=== PATIENT | female | born 1990 | race Caucasian/White ===

== ENCOUNTER → 2017-11-10 | Outpatient (CLI) | payer OTHER | LOC: M LRY 16:25 | DX: M79.671 Pain in right foot (principal) | CPT/HCPCS: 73630 ==

== ENCOUNTER → 2018-10-25 | Outpatient (REF) | payer OTHER | LOC: M LAB REF 16:08 | PROVIDERS: ATTEND Nurse Practitioner Women's Health | DX: Z3A.16 16 weeks gestation of pregnancy (principal) ==

== ENCOUNTER 2019-03-21 09:03 | Inpatient (IN) | payer OTHER ==
[~2019-03-21] VITALS: Ht 160 cm; Wt 70.7 kg
[2019-03-21] VITALS (17 sets, daily range): BP systolic 122–143; BP diastolic 56–87
[2019-03-21] MEDS ORDERED: MULTTAB20 PO (09:29)
[2019-03-21] MEDS ORDERED: LR 1,000 ML IV SCH (10:09)
[2019-03-21] MEDS ORDERED: OXYTOCIN DRIP 30 UNITS in APPROPRIATE DILUENT 1 EA IV SCH (10:15)
--- NOTE | 2019-03-21 10:32 | HPEPDOC ---
Obstetrical History & Physical General Date of Admission Mar 21, 2019 at 10:04 History of Present Illness 29 yo at 37 2/7 wks by 1st trimester US presents with LOF since midnight . She experienced a large gush and has continued leaking. She had an hour of painful contractions and then was able to rest. Denies vaginal bleeding, +FM. 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 ABDOMEN: Gravid and non-tender to touch. SSE: + pooling, nitrazine, ferning EXTREMITIES: No edema. No clonus. . Pertinent Laboratoy Data Blood Type: O+ RBC Antibody Screen: Negative HIV: Negative Hepatitis B: Negative Hepatitis C: Negative Rapid Plasma Reagin: Nonreactive Rubella: Immune Chlamydia/Gonorrhea: Negative Group B Streptococcus: Positive Vaginal Examination Dilation: 4 cm Effacement: 50% Station: -2 Cervical Consistency: Medium Cervical Position: Posterior Presentation: Cephalic presentation Assessment Heart Rate (FHR): 115 Variability: Moderate Accelerations: Positive Decelerations: Variable Tocometer Contractions: Yes Frequency: irregular Assessment/Plan Assessment 29 yo at 37 2/7 wks with ROM Plan Admit and orient. Security Administrator and consent. ROM: will start pitocin for augmentation as pt has been ruptured since midnight without progression into labor Diet: clears. Group B Streptococcus (GBS) +, will start Ancef. Labs and intravenous (IV) per unit protocol. CARMINE JAMA PGY-3 Mar 21, 2019 10:32
[2019-03-21 10:42] LABS: BASO % 0.4 % (0.0-1.0); EOS # 0.1 10^3/uL (0.0-0.50); HEMATOCRIT 37.8 % (36.0-47.0); HEMOGLOBIN 12.8 g/dl (12.0-15.5); LYMPH # 1.9 10^3/uL (1.5-6.5); MEAN CORPUSCULAR HEMOGLOBIN 30.7 pg (27.0-33.0); MEAN CORPUSCULAR HGB CONC 33.9 g/dl (32.0-36.5); MEAN CORPUSCULAR VOLUME 90.6 fl (80.0-96.0); MONO # 0.8 10^3/uL (0.0-0.8); MONO % 7.8 % (0.0-5.0); NEUTROPHILS # 6.9 10^3/uL (1.8-7.7); NEUTROPHILS % 70.6 % (36.0-66.0); PLATELET COUNT, AUTOMATED 239 10^3/uL (150-450); RED BLOOD COUNT 4.17 10^6/uL (4.00-5.40); WHITE BLOOD COUNT 9.8 10^3/uL (4.0-10.0)
--- NOTE | 2019-03-21 14:32 | IPNPDOC ---
Obstetrical Progress Note Date of Service Mar 21, 2019 Subjective pt breathing though ctx, feeling more uncomfortable Objective Vital Signs Date Time Temp Pulse Resp B/P (MAP) Pulse Ox O2 Delivery O2 Flow Rate FiO2 03/21/19 13:02 98.4 65 18 143/87 (105) 03/21/19 09:24 98 Assessment Heart Rate (FHR): 110 Variability: Moderate Accelerations: None Decelerations: Early Tocometer Contractions: Yes Frequency: regular Sterile Vaginal Examination Dilation: 6 cm Effacement (%): 80% Station: -1 Cervical Consistency: Soft Assessment and Plan Additional Comments 29 yo at 37 2/7 wks, undergoing IOL for SROM -IOL: progressing, continue pitocin per protocol -FWB: overall reassuring with mod variability and early/variable decels. Continue repositioning prn -GBS+, on ancef d/t PCN allergy CARMINE JAMA PGY-3 Mar 21, 2019 14:32
--- NOTE | 2019-03-21 15:36 | DNPDOC ---
[facility] Delivery Note Delivery Note DATE OF DELIVERY: 03/21/18 PREDELIVERY DIAGNOSIS: 37 2/7 weeks' gestation and labor, undergoing IOL after SROM at midnight on 03/21 POST DELIVERY DIAGNOSIS: Delivered. PROCEDURE: Spontaneous vaginal delivery. POLICE AND FIRE DISPATCHER: KEVIN Mclean; Carmine Jama, PGY3 ANESTHESIA: none. ESTIMATED BLOOD LOSS: 350cc. FINDINGS: Liveborn female infant at 1515, weight pending. Apgars 8/9. DELIVERY SUMMARY: Patient is a 29 G4 now P3104 who was admitted this morning after SROM at midnight. She was admitted and started on pitocin and ancef for GBS+. She progressed through the day and became fully dilated at 1510. She pushed once to deliver a liveborn female over an intact perienum. Tight nuchal x1 that was delivered through. Baby placed immediately to mom's chest. Placenta delivered spontaneously at 1523. EBL was 350cc. Mom and baby bonding in delivery room. CARMINE JAMA PGY-3 Mar 21, 2019 15:36
[2019-03-21] MEDS ORDERED: DOCUSATE SODIUM 100 MG CAP PO PRN (15:45)
[2019-03-21] MEDS ORDERED: ACETAMINOPHEN 500 MG TAB PO PRN (15:45)
[2019-03-21] MEDS ORDERED: ACETAMINOPHEN TAB 650MG DOSE (2X325MG) PO PRN (15:45)
[2019-03-21] MEDS ORDERED: METHYLERGONOVINE MALEATE 0.2 MG TAB PO PRN (15:45)
[2019-03-21] MEDS ORDERED: ONDANSETRON 4MG/2ML VIAL (J2405) IV PRN (15:45)
[2019-03-21] MEDS ORDERED: IBUPROFEN 600 MG TAB PO PRN (15:45)
[2019-03-21] MEDS ORDERED: PROMETHAZINE 25 MG TAB PO PRN (15:45)
[2019-03-21] MEDS ORDERED: DIBUCAINE 1% OINTMENT 30GM TOP PRN (15:45)
[2019-03-21] MEDS: IBUPROFEN 800 MG TAB PO PRN (17:03)
[2019-03-21] MEDS ORDERED: ceFAZolin SOD 1 GM in D5W MINI-BAG PLUS 50 ML IV SCH (19:00)
[2019-03-22 06:00] VITALS: BP 111/59
[2019-03-22] MEDS ORDERED: LEVOTHYROXINE 150MCG TABLET (0.15MG) PO SCH (06:00)
[2019-03-22] MEDS ORDERED: IBUP80TA PO (07:15)
[2019-03-22] MEDS ORDERED: ACET1TAB55 PO (07:15)
[2019-03-22] MEDS: IBUPROFEN 800 MG TAB PO PRN (07:44)
[2019-03-22] MEDS ORDERED: PRENATAL VITAMINS CHEWABLE TABLET PO SCH (09:00)
[2019-03-23] MEDS ORDERED: ADDERALL 5 MG TAB PO SCH (09:00)
== END 2019-03-22 16:30 | disposition home or self-care (01) | DRG 807 ==
LOC: M LDO 09:03 → M LDI 10:04 → M OBS 17:28
PROVIDERS: ADMIT Advanced Practice Midwife; ATTEND Advanced Practice Midwife
PROC: 10E0XZZ Delivery of Products of Conception, External Approach (ICD-10-PCS; principal; 2019-03-21)
DX: O69.89X0 Labor and delivery complicated by other cord complications, not applicable or unspecified (principal); Z37.0 Single live birth; Z3A.37 37 weeks gestation of pregnancy; O99.824 Streptococcus B carrier state complicating childbirth

== ENCOUNTER → 2019-08-18 | Outpatient (REF) | payer OTHER ==
[~2019-08-18] MED LIST: ACET1TAB55 PO; IBUP80TA PO; MULTTAB20 PO
[2019-08-18 17:20] LABS: BASO # 0.1 10^3/uL (0.0-0.2); BASO % 0.7 % (0.0-1.0); EOS # 0.1 10^3/uL (0.0-0.5); EOS % 0.9 % (0.0-3.0); HEMATOCRIT 44.2 % (36.0-47.0); HEMOGLOBIN 14.1 g/dl (12.0-15.5); LYMPH # 2.1 10^3/uL (1.5-5.0); LYMPH % 25.5 % (24.0-44.0); MEAN CORPUSCULAR HEMOGLOBIN 29.4 pg (27.0-33.0); MEAN CORPUSCULAR HGB CONC 31.9 g/dl (32.0-36.5); MEAN CORPUSCULAR VOLUME 92.3 fl (80.0-96.0); MONO # 0.7 10^3/uL (0.0-0.8); MONO % 8.2 % (0.0-5.0); NEUTROPHILS # 5.2 10^3/uL (1.5-8.5); NEUTROPHILS % 64.3 % (36.0-66.0); PLATELET COUNT, AUTOMATED 289 10^3/uL (150-450); RED BLOOD COUNT 4.79 10^6/uL (4.00-5.40); WHITE BLOOD COUNT 8.1 10^3/uL (4.0-10.0)
[2019-08-18 17:28] LABS: ALBUMIN 4.4 GM/DL (3.2-5.2); ALT/SGPT 21 U/L (12-78); BILIRUBIN,TOTAL 0.5 MG/DL (0.2-1.0); BLOOD UREA NITROGEN 13 MG/DL (7-18); CALCIUM LEVEL 9.7 MG/DL (8.5-10.1); CARBON DIOXIDE LEVEL 29 MEQ/L (21-32); CHLORIDE LEVEL 106 MEQ/L (98-107); CREATININE FOR GFR 0.82 MG/DL (0.55-1.30); FREE T4 0.95 NG/DL (0.76-1.46); GLOMERULAR FILTRATION RATE > 60.0 (>60); GLUCOSE, FASTING 79 MG/DL (70-100); POTASSIUM SERUM 4.1 MEQ/L (3.5-5.1); SODIUM LEVEL 140 MEQ/L (136-145); TOTAL PROTEIN 7.5 GM/DL (6.4-8.2)
[2019-08-18 18:15] LABS: HEMOGLOBIN A1c 5.4 %
== END ==
LOC: M SFHCCLAY 10:41
PROVIDERS: ATTEND Nurse Practitioner Family
DX: R42 Dizziness and giddiness (principal)
CPT/HCPCS: 80053; 83036; 84439; 84443; 85025; G0463

== ENCOUNTER 2020-02-08 15:47 | Emergency (ER) | payer OTHER ==
[~2020-02-08] VITALS: Ht 160 cm; Wt 61.4 kg
[2020-02-08 15:47] VITALS: BP 141/78
[2020-02-08] MEDS ORDERED: LIDOCAINE 5% (LIDODERM) PATCH TD ONE (16:45)
[2020-02-08] MEDS ORDERED: LIDO5DIS41 TOP (17:43)
--- NOTE | 2020-02-08 17:54 | REP ---
LUMBOSACRAL SPINE: REASON: Pain after trauma. FINDINGS: Five views of the lumbosacral spine show no acute fracture, dislocation or subluxation. The intervertebral disc spaces are symmetric and well maintained. There is no spondylolysis or spondylolisthesis. The pedicles are intact bilaterally and there is no destructive osseous lesion. IMPRESSION: Unremarkable lumbosacral spine series. Electronically Signed by Jose Ernandez DO 02/08/2020 06:17 P
--- NOTE | 2020-02-08 17:54 | REP ---
REASON: Pain after trauma. FINDINGS: No acute fracture or destructive osseous lesion. Electronically Signed by Jose Ernandez DO 02/08/2020 06:17 P
[2020-02-08] MEDS ORDERED: **NOTE PATIENT COMMENT** MISC XX SCH (21:00)
== END 2020-02-08 17:54 | disposition home or self-care (01) ==
LOC: M ED 15:47
DX: S30.0XXA Contusion of lower back and pelvis, initial encounter (principal); X50.3XXA Overexertion from repetitive movements, initial encounter; Y93.B2 Activity, push-ups, pull-ups, sit-ups; Y99.8 Other external cause status; Y92.015 Private garage of single-family (private) house as the place of occurrence of the external cause; Z88.0 Allergy status to penicillin; K90.41 Non-celiac gluten sensitivity; W17.89XA Other fall from one level to another, initial encounter

== ENCOUNTER → 2020-07-24 | Outpatient (REF) | payer OTHER ==
[~2020-07-24] MED LIST changes: +LIDO5DIS41 TOP
[2020-07-24 16:10] LABS: BASO # 0.1 10^3/uL (0.0-0.2); BASO % 1.2 % (0.0-1.0); EOS # 0.1 10^3/uL (0.0-0.5); EOS % 1.9 % (0.0-3.0); HEMATOCRIT 44.1 % (36.0-47.0); HEMOGLOBIN 14.2 g/dl (12.0-15.5); LYMPH # 2.2 10^3/uL (1.5-5.0); LYMPH % 36.9 % (24.0-44.0); MEAN CORPUSCULAR HEMOGLOBIN 29.5 pg (27.0-33.0); MEAN CORPUSCULAR HGB CONC 32.2 g/dl (32.0-36.5); MEAN CORPUSCULAR VOLUME 91.7 fl (80.0-96.0); MONO # 0.5 10^3/uL (0.0-0.8); NEUTROPHILS # 3.1 10^3/uL (1.5-8.5); NEUTROPHILS % 51.8 % (36.0-66.0); PLATELET COUNT, AUTOMATED 294 10^3/uL (150-450); RED BLOOD COUNT 4.81 10^6/uL (4.00-5.40); WHITE BLOOD COUNT 5.9 10^3/uL (4.0-10.0)
[2020-07-24 16:44] LABS: ALBUMIN 4.6 GM/DL (3.2-5.2); ALT/SGPT 21 U/L (12-78); BILIRUBIN,TOTAL 0.4 MG/DL (0.2-1.0); BLOOD UREA NITROGEN 11 MG/DL (7-18); CALCIUM LEVEL 9.2 MG/DL (8.5-10.1); CARBON DIOXIDE LEVEL 30 MEQ/L (21-32); CHLORIDE LEVEL 106 MEQ/L (98-107); FREE T4 1.03 NG/DL (0.76-1.46); GLOMERULAR FILTRATION RATE > 60.0 (>60); GLUCOSE, FASTING 77 MG/DL (70-100); IRON (FE) 87 UG/DL (50-170); PERCENT SATURATION 23.1 % (13.2-45.0); POTASSIUM SERUM 4.2 MEQ/L (3.5-5.1); SODIUM LEVEL 140 MEQ/L (136-145); TOTAL IRON BINDING CAPACITY 376 UG/DL (250-450); TOTAL PROTEIN 7.7 GM/DL (6.4-8.2)
[2020-07-24 16:46] LABS: TOTAL 25(OH) VITAMIN D 35.8 NG/ML (30.0-100.0)
== END ==
LOC: M SFHCCLAY 09:41
PROVIDERS: ATTEND Nurse Practitioner Family
DX: F41.8 Other specified anxiety disorders (principal); R53.83 Other fatigue
CPT/HCPCS: 80053; 82306; 83550; 84439; 84443; 85025; G0463